=== PATIENT | female | born 1950 | race Caucasian/White ===

== ENCOUNTER → 2018-10-25 | Emergency (ER) | payer OTHER ==
[~2018-10-25] VITALS: Ht 160 cm; Wt 74.3 kg
[~2018-10-25] MED LIST: BEN50 PO; DIPHENHYDRAMINE 50 MG CAP PO ONE; FAMO-96 PO; METHYLPREDNISOLONE 125 MG INJ IM ONE; ONDA4TAB35 PO; PRED20TA PO
[2018-10-25 12:20] VITALS: BP 130/80; PULSE 88; RESP 18; Ht 160 cm; Wt 74.3 kg
--- NOTE | 2018-10-25 13:54 | ERD ---
ER Documentation Chief Complaint Chief Complaint facial swelling possible allergic reaction x 5 days HPI This is a 68-year-old female with history of hypertension and hypercholesteremia presents ED with complaints of mild facial swelling for the past 5 days. Patient has seasonal allergies and believes that she is having allergic reaction. Patient states that she has not started any new medications. Patient admits to using a new face lotion over the past week. Patient admits to runny nose, sneezing and itching. Denies fever, chills, x1, lip swelling, shortness breath, trouble breathing, chest pain, and all other symptoms. No known drug allergies. She states that she has had a similar symptom a year ago when she was given steroids. ROS All systems reviewed and are negative except as per history of present illness. Medications Home Meds Active Scripts Famotidine* (Pepcid*) 20 Mg Tablet, 20 MG PO BID for 4 Days, TAB Prov:MAHSA CONNORS PA-C 10/25/18 Prednisone* (Prednisone*) 20 Mg Tab, 40 MG PO DAILY for 4 Days, TAB Prov:MAHSA CONNORS PA-C 10/25/18 Diphenhydramine Hcl* (Benadryl*) 50 Mg Cap, 50 MG PO Q6 PRN for ALLERGIC REACTION, #30 CAP Prov:MAHSA CONNORS PA-C 10/25/18 Ondansetron Hcl* (Zofran* ODT) 4 mg -ODT Tab.disper, 4 MG PO Q6 PRN for NAUSEA AND/OR VOMITING, #10 TAB Prov:MARVIN LION 02/24/16 Allergies Allergies: Coded Allergies: No Known Allergy (Unverified , 10/25/18) PMhx/Soc Medical and Surgical Hx: pt denies Surgical Hx Hx Cardiac Disorders: Yes (high cholesterol ,htn) Hx Alcohol Use: No Hx Substance Use: No Hx Tobacco Use: No Smoking Status: Never smoker Physical Exam Vitals Vital Signs Date Temp Pulse Resp B/P (MAP) Pulse Ox O2 O2 Flow FiO2 Time Delivery Rate 10/25/18 98.1 88 18 130/80 95 12:20 (97) Physical Exam Physical Exam Vitals signs: Reviewed by me. General: Well developed, well nourished, in no acute distress. Patient is awake and alert. Head: Normocephalic, atraumatic. Eyes: Normal conjunctiva, Pupils PERRLA, EOM intact bilaterally x6, no pain with eye movement, no edema of eyelids, ENT: Pharynx is clear, Moist mucous membranes, external ears, nose and mouth normal, there is faint erythema and edema of bilateral cheeks, no uvula swelling, no tongue swelling, clear rhinorrhea present, no lip swelling Neck: Supple, no masses, lymphadenopathy or JVD Respiratory: Clear to auscultation bilaterally with no wheezing, rhonchi, rales, no distress no respiratory distress Cardiovascular: RRR, no murmurs, rubs, or gallops Neurologic: Alert and oriented, moving all extremities, normal speech, no focal weakness, no cerebellar signs. Normal mentation Skin: warm and dry, No rash Psych: Normal mood Results 24 hrs Current Medications Medications Dose Sig/Rodriguez Start Time Status Last (Trade) Ordered Route PRN Stop Time Admin Dose Reason Admin 50 mg ONCE ONCE 10/25/18 DC 10/25/18 Diphenhydrami PO 13:30 10/25/18 13:41 ne HCl 13:31 (Benadryl) 125 mg ONCE ONCE 10/25/18 DC 10/25/18 Methylprednis IM 13:30 10/25/18 13:41 olone Sodium 13:31 Succinate (Solu-Medrol) Procedures/MDM ER COURSE: The patient was given SOLUMedrol and Benadryl The medication was well tolerated and the patient reports improvement in symp toms. The patient was stable throughout ED course. I kept the patient and/or family informed of laboratory and diagnostic imaging results throughout the emergency room course. The patient was promptly evaluated and a treatment plan was devised based on H&P and other data. This plan was discussed with the patient who agreed and had no further questions or concerns prior to discharge. MEDICAL DECISION MAKING: This is a 68-year-old female with a history of hypertension and hypercholesteremia presents ED with complaints of facial swelling and possible allergic reaction over the past 5 days. Given history of starting a new face product this is likely a local allergic reaction to this facial product. Patient's lungs are clear, vitals are stable, and is having no signs of anaphylaxis. Patient has no wheezing, rhonchi, rales, tonsillar adenopathy, angioedema, airway compromise, hoarseness, tongue edema or uvulitis or signs of respiratory distress. History and physical examination other data not consistent with emergent process including life threatening rash or anaphylaxis. Vitals are stable and patient can be managed with close outpatient follow-up. Advised patient to follow up with primary care in the next 48 hours. Advised patient that if she is experiencing any shortness of breath, tongue swelling, trouble breathing, wheezing that he needs to report back to ER immediately. Patient was also referred to see an helpdesk manager for allergy testing. DISPOSITION PLAN: We discussed follow up with the patient's primary care doctor within 24 to 48 hours. Patient counseled regarding my diagnostic impression and care plan. Prior to discharge all questions answered. Pt agrees with treatment plan and understands strict return precautions. Precautionary instructions provided including instructions to return to the ER if not improving or for any worsening or changing symptoms or concerns. 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 Disclaimer: Inadvertent spelling and grammatical errors are likely due to EHR/dictation software use and do not reflect on the overall quality of patient care. Also, please note that the electronic time recorded on this note does not necessarily reflect the actual time of the patient encounter. Blood Pressure Assessment: Patient's blood pressure was elevated (>120/80) but appears stable without evidence of hypertension emergency or urgency. The patient was counseled about the risks of hypertension and urged to pursue outpatient monitoring and therapy within a week with their primary care physician. Departure Diagnosis: Primary Impression: Allergic reaction Encounter type: initial encounter Qualified Codes: T78.40XA - Allergy, unspecified, initial encounter Condition: Stable Patient Instructions: Allergic Reaction, Other (Local), Allergic Rhinitis Referrals: NISA BROOKS MD,FARIBA YEN,YAHAIRA CASEY,PAMELA CHAUDHARY,CHEPE TOBIAS,DARIAN HERRERA,DARIAN Victor [facility] YOU HAVE RECEIVED A MEDICAL SCREENING EXAM AND THE RESULTS INDICATE THAT YOU DO NOT HAVE A CONDITION THAT REQUIRES URGENT TREATMENT IN THE EMERGENCY DEPARTMENT. FURTHER EVALUATION AND TREATMENT OF YOUR CONDITION CAN WAIT UNTIL YOU ARE SEEN IN YOUR DOCTORS OFFICE WITHIN THE NEXT 1-2 DAYS. IT IS YOUR RESPONSIBILITY TO MAKE AN APPOINTMENT FOR FOLOW-UP CARE. IF YOU HAVE A PRIMARY DOCTOR --you should call your primary doctor and schedule an appointment IF YOU DO NOT HAVE A PRIMARY DOCTOR YOU CAN CALL OUR PHYSICIAN REFERRAL HOTLINE AT IF YOU CAN NOT AFFORD TO SEE A PHYSICIAN YOU CAN CHOSE FROM THE FOLLOWING [facility] [address] [facility] [address] [facility] [address] [facility] [address] [facility] [address] [facility]. [facility] [address] Additional Instructions: Patient advised to follow-up with dermatology for possible allergy testing Patient advised to return to the ED immediately for new or worsening symptoms. Patient advised to follow up with primary care provider in the next 24-48 hours. Patient verbalized understanding and agrees with treatment plan and course of action. If patient has no primary care they may follow up with one of the community clinics listed on the following page or one of the options listed below [facility] + [facility] [address] [place] [id number] or [facility] [address] [place] [address] or [facility] [address] [place] [address] MAHSA CONNORS PA-C Oct 25, 2018 13:54
== END | disposition home or self-care (01) ==
LOC: FTE 12:12
DX: R22.0 Localized swelling, mass and lump, head (principal)
CPT/HCPCS: 96372; J2930; Z7502; Z7610

== ENCOUNTER 2019-05-26 16:28 | Inpatient (IN) | payer OTHER ==
[~2019-05-26] VITALS: Ht 152.4 cm; Wt 69.0 kg
[~2019-05-26 16:28] MED LIST changes: +AMLO2.5T78 PO; +BACL10TA PO; +CEPH500C PO; -DIPHENHYDRAMINE 50 MG CAP PO ONE; +LOSA100T15 PO; -METHYLPREDNISOLONE 125 MG INJ IM ONE
[2019-05-26] MEDS ORDERED: PROCHLORPERAZINE 10 MG INJ IV STA (17:27)
[2019-05-26] MEDS ORDERED: KETOROLAC 30 MG INJ IV STA (17:27)
[2019-05-26] MEDS ORDERED: SOD CHLORIDE 0.9% 1,000 ML IV STA (17:27)
--- NOTE | 2019-05-26 20:41 | ERD ---
ER Documentation Chief Complaint Chief Complaint Pt c/o GOMES, n/v x 4 days HPI 68-year-old female presenting with complaints of frontal headache, high diastolic blood pressure, generalized weakness with nausea and vomiting. She also has associated muscle cramps for the past 4 days. All her symptoms have been going on for 4 days. She denies any vision disturbance, focal weakness or numbness. No abdominal pain, chest pain, shortness of breath, dysuria or hematuria. No melena or hematochezia. She states that her blood pressure has been difficult to control. She was seen a few days ago at another hospital where she had a work-up done showing possible infection of the urine but otherwise labs were normal per family. Of note, she did recently increase her losartan from 50 mg to 100 mg daily. ROS All systems reviewed and are negative except as per history of present illness. Medications Home Meds Active Scripts Ondansetron Hcl* (Zofran* ODT) 4 mg -ODT Tab.disper, 4 MG PO Q6 PRN for NAUSEA AND/OR VOMITING, #10 TAB Prov:MARVIN LION 02/24/16 Reported Medications Amlodipine Besylate* (Amlodipine Besylate*) 2.5 Mg Tablet, 2.5 MG PO QPM, #30 TAB 05/26/19 Baclofen* (Baclofen*) 10 Mg Tablet, 10 MG PO DAILY, TAB 05/26/19 Cephalexin* (Cephalexin*) 500 Mg Capsule, 500 MG PO DAILY, #28 CAP 05/26/19 Losartan Potassium* (Losartan Potassium*) 100 Mg Tablet, 100 MG PO DAILY, TAB 05/26/19 Discontinued Scripts Famotidine* (Pepcid*) 20 Mg Tablet, 20 MG PO BID for 4 Days, TAB Prov:MAHSA CONNORS PA-C 10/25/18 Prednisone* (Prednisone*) 20 Mg Tab, 40 MG PO DAILY for 4 Days, TAB Prov:MAHSA CONNORS PA-C 10/25/18 Diphenhydramine Hcl* (Benadryl*) 50 Mg Cap, 50 MG PO Q6 PRN for ALLERGIC REACTION, #30 CAP Prov:MAHSA CONNORS PA-C 10/25/18 Allergies Allergies: Coded Allergies: No Known Allergy (Unverified , 10/25/18) PMhx/Soc History of Surgery: No Hx Cardiac Disorders: Yes (high cholesterol ,htn) Hx Alcohol Use: No Hx Substance Use: No Hx Tobacco Use: No Smoking Status: Never smoker FmHx Family History: No diabetes Physical Exam Vitals Vital Signs Date Temp Pulse Resp B/P (MAP) Pulse Ox O2 O2 Flow FiO2 Time Delivery Rate 05/26/19 98.7 91 18 138/92 96 Room Air 21:27 (107) 05/26/19 98.7 89 16 139/84 94 Room Air 20:49 (102) 05/26/19 98.7 82 20 131/84 99 Room Air 20:05 (100) 05/26/19 98.7 73 20 123/79 99 Room Air 18:47 (94) 05/26/19 98.7 81 20 134/79 99 Room Air 18:04 (97) 05/26/19 98.7 88 20 134/101 99 Room Air 17:06 (112) 05/26/19 98.7 100 20 130/87 99 16:32 (101) Physical Exam Const: No acute distress Head: Atraumatic Eyes: Normal Conjunctiva, PERRLA, EOMI, no nystagmus ENT: Dry mucous membranes. Normal External Ears, Nose and Mouth. Neck: Full range of motion. No meningismus. Resp: Clear to auscultation bilaterally Cardio: Regular rate and rhythm, no murmurs, 2+ distal pulses in all 4 extremities Abd: Soft, non tender, non distended. Normal bowel sounds Skin: No petechiae or rashes Back: No midline or flank tenderness Ext: No cyanosis, or edema Neur: Awake and alert, oriented x3, cranial nerves intact, strength and sensations intact in all 4 extremities. Normal speech, normal balance. Psych: Normal Mood and Affect Result Diagram: 05/26/19 1740 05/26/19 174 Results 24 hrs Laboratory Tests Test 05/26/19 16:45 05/26/19 17:27 05/26/19 17:40 05/26/19 19:15 Osmolality 236 mOsm/kg Hemoglobin A1c 5.9 % White Blood Count 11.7 10^3/ul Red Blood Count 4.69 10^6/ul Hemoglobin 13.3 g/dl Hematocrit 37.7 % Mean Corpuscular 80.4 fl Volume Mean Corpuscular 28.4 pg Hemoglobin Mean Corpuscular 35.3 g/dl Hemoglobin Concent Red Cell 11.9 % Distribution Width Platelet Count 379 10^3/UL Mean Platelet 8.8 fl Volume Immature 1.400 % Granulocytes % Neutrophils % 64.9 % Lymphocytes % 25.6 % Monocytes % 7.6 % Eosinophils % 0.2 % Basophils % 0.3 % Nucleated Red Blood 0.0 /100WBC Cells % Immature 0.160 10^3/ul Granulocytes # Neutrophils # 7.6 10^3/ul Lymphocytes # 3.0 10^3/ul Monocytes # 0.9 10^3/ul Eosinophils # 0.0 10^3/ul Basophils # 0.0 10^3/ul Nucleated Red Blood 0.0 10^3/ul Cells # Sodium Level 115 mmol/L Potassium Level 3.1 mmol/L Chloride Level 77 mmol/L Carbon Dioxide 24 mmol/L Level Anion Gap 14 Blood Urea Nitrogen 16 mg/dl Creatinine 0.69 mg/dl Est Glomerular > 60 mL/min Filtrat Rate mL/min Glucose Level 145 mg/dl Calcium Level 9.7 mg/dl Troponin I < 0.012 ng/ml Urine Color COLORLESS Urine Clarity CLEAR Urine pH 7.0 Urine Specific 1.003 Randall Urine Ketones NEGATIVE mg/dL Urine Nitrite NEGATIVE mg/dL Urine Bilirubin NEGATIVE mg/dL Urine Urobilinogen NEGATIVE mg/dL Urine Leukocyte NEGATIVE Darrin/ul Esterase Urine Microscopic 2 /HPF RBC Urine Microscopic 0 /HPF WBC Urine Hemoglobin 1+ mg/dL Urine Osmolality 154 mOsm/kg Urine Random Sodium 17 mmol/L Urine Random 12.3 mmol/L Potassium Urine Glucose NEGATIVE mg/dL Urine Total Protein NEGATIVE mg/dl Current Medications Medications Dose Sig/Rodriguez Start Time Status Last (Trade) Ordered Route PRN Stop Time Admin Dose Reason Admin 10 mg ONCE STAT 05/26/19 DC 05/26/19 Prochlorperaz IV 17:27 05/26/19 17:41 ine 17:31 (Compazine Inj) Ketorolac 15 mg ONCE STAT 05/26/19 DC 05/26/19 Tromethamine IV 17:27 05/26/19 17:41 (Toradol) 17:31 Sodium 1,000 ml @ Q1H STAT 05/26/19 DC 05/26/19 Chloride 1,000 mls/hr IV 17:27 05/26/19 17:40 18:26 Sodium 1,000 ml @ Q10H IV 05/26/19 05/26/19 Chloride 100 mls/hr 20:48 21:05 Ondansetron 4 mg Q6H PRN 05/26/19 HCl (Zofran IV NAUSEA 21:00 Inj) AND/OR VOMITING Albuterol/ 3 ml Q2H RESP 05/26/19 Ipratropium THERAPY PRN 21:00 (Duoneb) NEB SHORTNESS OF BREATH 650 mg Q6H PRN 05/26/19 Acetaminophen PO PAIN 21:00 (Tylenol LEVEL 1-3 OR Liquid) FEVER Procedures/MDM EMERGENT LABS AND DIAGNOSTIC STUDIES: Lab Results above were reviewed and interpreted by me. CBC: no anemia or evidence of infection BMP: Severe hyponatremia, hypochloremia, and hypokalemia. no e/o clinically significant acidosis, alkalosis, renal failure, diabetic ketoacidosis Troponin within normal limits, not indicative of cardiac ischemia UA: 1+ hemoglobin with 2 RBCs, possibly rhabdomyolysis. No evidence of infection 12-lead EKG was interpreted by Tez Gonzalez MD: Normal Sinus Rhythm with ventricular rate of [] beats per minute Normal axis Normal intervals No acute ST or T wave changes suggestive of acute ischemia or STEMI. Radiology Results as interpreted by Radiology below were reviewed by Lexie Gonzalez MD: Chest x-ray shows no acute abnormalities CT head no acute abnormalities Initial Nursing notes reviewed. Previous Medical Records requested via the Electronic Health Record. EMERGENCY DEPARTMENT COURSE / MEDICAL DECISION MAKING: Patient is presenting with multiple complaints including generalized weakness, frontal headache, nausea and vomiting as well as muscle cramps. Her vitals were notable for mild hypoxia on room air of unclear etiology. However she has no symptoms of infection, PE, CHF, pneumothorax, or ACS. Chest x-ray was un remarkable. Her diastolic blood pressure was elevated with systolic was somewhat normal. IV fluids were initiated. Work-up showed evidence of severe hyponatremia with mild hypokalemia of unclear etiology. CT was ordered of the head and did not show any significant acute abnormalities. Patient is not stable for discharge and will require admission. At this time she does not require hypertonic saline as she is neurologically intact without any evidence of seizure-like activity. Critical Care Time: 45 minutes Treatments/Evaluations: Close monitoring and treatment of unstable vital signs, cardiorespiratory, and neurologic status, while maintaining tight balance of fluid, respiratory, and cardiac interventions. This time includes discussing the case with the patient and the patients family. This time does not include all procedures stated elsewhere in this record. This time also includes reviewing old records, labs and radiological studies. This time includes examining and re-examining the patient. Additionally, this time also includes arranging care with admitting and consulting physicians. Accepting Care Team: Current data and ongoing care discussed. Time: Time of admission Primary Provider: Dr. Barron Departure Diagnosis: Primary Impression: Hyponatremia syndrome Additional Impressions: Frontal headache Generalized weakness Nausea and vomiting Vomiting type: unspecified Vomiting Intractability: non-intractable Qualified Codes: R11.2 - Nausea with vomiting, unspecified Condition: Critical EKJV MCCLELLAN MD May 26, 2019 20:41
[2019-05-26] MEDS ORDERED: SOD CHLORIDE 0.9% 1,000 ML IV SCH (20:48)
[2019-05-26] MEDS ORDERED: ONDANSETRON 4 MG INJ IV PRN (21:00)
[2019-05-26] MEDS ORDERED: ACETAMINOPHEN 650MG/20.3ML CUP PO PRN (21:00)
[2019-05-26] MEDS ORDERED: ALBUTEROL/IPRATROPIUM (NEB) 3 ML AMP NEB PRN (21:00)
--- NOTE | 2019-05-27 00:08 | HP ---
Date/Time of Note Date/Time of Note DATE: 05/27/19 TIME: 00:08 Assessment/Plan VTE Prophylaxis Pharmacological prophylaxis: heparin Lines/Catheters IV Catheter Type (from Nrsg): Saline Lock Assessment/Plan Assessment/Plan 1. Hypovolemic hyponatremia, secondary to vomiting and decreased p.o. intake -NS IVF -Check urine sodium and serum/urine osmolality -Consider nephrology consult 2. Headache/dizziness: Likely secondary to above -Head CT negative for acute findings 3. Hypertension: BP within acceptable range 4. Dyslipidemia: Continue statin Result Diagram: 05/26/19 1740 05/26/19 1740 Results 24hrs Laboratory Tests Test 05/26/19 16:45 05/26/19 17:27 05/26/19 17:40 05/26/19 19:15 Osmolality 236 L Hemoglobin A1c 5.9 White Blood Count 11.7 #H Red Blood Count 4.69 Hemoglobin 13.3 Hematocrit 37.7 Mean Corpuscular Volume 80.4 L Mean Corpuscular 28.4 L Hemoglobin Mean Corpuscular 35.3 Hemoglobin Concent Red Cell Distribution 11.9 Width Platelet Count 379 Mean Platelet Volume 8.8 # Immature Granulocytes % 1.400 H Neutrophils % 64.9 Lymphocytes % 25.6 Monocytes % 7.6 Eosinophils % 0.2 Basophils % 0.3 Nucleated Red Blood 0.0 Cells % Immature Granulocytes # 0.160 H Neutrophils # 7.6 H Lymphocytes # 3.0 H Monocytes # 0.9 Eosinophils # 0.0 Basophils # 0.0 Nucleated Red Blood 0.0 Cells # Sodium Level 115 *L Potassium Level 3.1 L Chloride Level 77 L Carbon Dioxide Level 24 Anion Gap 14 H Blood Urea Nitrogen 16 Creatinine 0.69 Est Glomerular Filtrat > 60 Rate mL/min Glucose Level 145 Calcium Level 9.7 Troponin I < 0.012 Urine Color COLORLESS Urine Clarity CLEAR Urine pH 7.0 Urine Specific Addison 1.003 Urine Ketones NEGATIVE Urine Nitrite NEGATIVE Urine Bilirubin NEGATIVE Urine Urobilinogen NEGATIVE Urine Leukocyte Esterase NEGATIVE Urine Microscopic RBC 2 Urine Microscopic WBC 0 Urine Hemoglobin 1+ H Urine Osmolality 154 L Urine Random Sodium 17 L Urine Random Potassium 12.3 L Urine Glucose NEGATIVE Urine Total Protein NEGATIVE HPI/ROS Admit Date/Time Admit Date/Time Hx of Present Illness Patient is a 68-year-old female with a history of hypertension, dyslipidemia who was brought to the ER for generalized weakness, headache, vomiting and a decreased p.o. intake. Patient is accompanied by her daughter who provided most of the story. Patient started having nausea and vomiting 4 days ago and then she started having generalized weakness and a frontal headache. Daughter said blood pressure was 150s over 100, which she said is high for her mother. A week prior she was seen at [facility] for her lower back pain. According to the daughter, CT was negative. Patient without bladder/bowel incontinence, pain does not radiate to her leg and no reported trauma. Patient has been taking baclofen. Her daughter is a chiropractor and she has been massaging her mother. Patient also has been having cramps in her leg. When patient presented to ER, vitals were stable. She was found to have sodium of 115. Patient not on HCTZ or SSRI. Head CT without acute findings. PMH/Family/Social Past Medical History Medical History: other (See HPI) Medications Current Medications Sodium Chloride 1,000 ml @ 100 mls/hr Q10H IV Last administered on 05/26/19at 21:05; Admin Dose 100 MLS/HR; Start 05/26/19 at 20:48 Ondansetron HCl (Zofran Inj) 4 mg Q6H PRN IV NAUSEA AND/OR VOMITING; Start 05/26/19 at 21:00 Albuterol/ Ipratropium (Duoneb) 3 ml Q2H RESP THERAPY PRN NEB SHORTNESS OF BREATH; Start 05/26/19 at 21:00 Acetaminophen (Tylenol Liquid) 650 mg Q6H PRN PO PAIN LEVEL 1-3 OR FEVER; Start 05/26/19 at 21:00 Coded Allergies: No Known Allergy (Unverified , 10/25/18) Past Surgical History Past Surgical Hx: other (See HPI) Family History Significant Family History: no pertinent family hx Social History Alcohol Use: none Smoking Status: Never smoker Drug Use: none Exam/Review of Systems Vital Signs Vitals Vital Signs Date Temp Pulse Resp B/P (MAP) Pulse Ox O2 O2 Flow FiO2 Time Delivery Rate 05/26/19 98.7 84 18 139/90 100 Room Air 23:19 (106) Intake and Output 05/26/19 05/26/19 05/27/19 1515:00 23:00 07:00 IntakeIntake Total 1000 ml BalanceBalance 1000 ml Exam Constitutional: other (Appears a week. But arousable and answering questions the help of pharmacist in charge) Head: normocephalic, atraumatic Eyes: EOMI, PERRL Respiratory: clear to auscultation, normal air movement Cardiovascular: regular rate and rhythm, nl pulses Gastrointestinal: soft, non-tender Extremities: normal pulses MARVIN CURTIS MD May 27, 2019 00:08
--- NOTE | 2019-05-27 13:31 | PN ---
Date/Time of Note Date/Time of Note DATE: 05/27/19 TIME: 13:27 Assessment/Plan VTE Prophylaxis SCD applied (from Nsg): Yes Pharmacological prophylaxis: NA/contraindicated Pharm contraindication: low risk/ambulating Lines/Catheters IV Catheter Type (from Nrsg): Saline Lock Assessment/Plan Assessment/Plan 68 yo [place] woman no major PMH presents with nausea, vomiting, and severe hyponatremia 1. Hypovolemic hyponatremia, secondary to vomiting and decreased p.o. intake -NS IVF -Now resolving after aggressive IV fluids. -Continue regular BMPs. 2. Headache/dizziness: Likely secondary to above -Head CT negative for acute findings -Now resolved. 3. Hypertension: BP within acceptable range 4. Dyslipidemia: Continue statin Dispo: Anticipate discharge home in 24-48 hrs. Result Diagram: 05/27/19 0545 05[birth year]1945 Subjective 24 Hr Interval Summary Free Text/Dictation No acute overnight events. Spoke to patient via daughter Cayla at bedside. The patient is feeling much better. She is up and walking short distances. Tolerating diet. No more nausea or vomiting. Still feels slightly fatigued. Exam/Review of Systems Exam Vitals Vital Signs Date Temp Pulse Resp B/P (MAP) Pulse Ox O2 O2 Flow FiO2 Time Delivery Rate 05/27/19 79 19 114/84 100 Room Air 08:29 (94) 05/27/19 98.7 03:06 Intake and Output 05/26/19 05/26/19 05/27/19 1515:00 23:00 07:00 IntakeIntake Total 1000 ml BalanceBalance 1000 ml Exam Gen: Well appearing elderly woman supine in bed Eyes: PERRL, no icterus HEENT: Moist mucous membranes, clear oropharynx Neck: Supple, no lymphadenopathy Card: Regular rate and rhythm, no murmurs Pulm: Clear to auscultation bilaterally Abd: Soft, normoactive bowel sounds, nondistended. Ext: No cyanosis/clubbing/edema. Results Results 24hrs Laboratory Tests Test 05/26/19 16:45 05/26/19 17:27 05/26/19 17:40 05/26/19 19:15 Osmolality 236 L Hemoglobin A1c 5.9 White Blood Count 11.7 #H Red Blood Count 4.69 Hemoglobin 13.3 Hematocrit 37.7 Mean Corpuscular Volume 80.4 L Mean Corpuscular 28.4 L Hemoglobin Mean Corpuscular 35.3 Hemoglobin Concent Red Cell Distribution 11.9 Width Platelet Count 379 Mean Platelet Volume 8.8 # Immature Granulocytes % 1.400 H Neutrophils % 64.9 Lymphocytes % 25.6 Monocytes % 7.6 Eosinophils % 0.2 Basophils % 0.3 Nucleated Red Blood 0.0 Cells % Immature Granulocytes # 0.160 H Neutrophils # 7.6 H Lymphocytes # 3.0 H Monocytes # 0.9 Eosinophils # 0.0 Basophils # 0.0 Nucleated Red Blood 0.0 Cells # Sodium Level 115 *L Potassium Level 3.1 L Chloride Level 77 L Carbon Dioxide Level 24 Anion Gap 14 H Blood Urea Nitrogen 16 Creatinine 0.69 Est Glomerular Filtrat > 60 Rate mL/min Glucose Level 145 Calcium Level 9.7 Troponin I < 0.012 Urine Color COLORLESS Urine Clarity CLEAR Urine pH 7.0 Urine Specific [place] 1.003 Urine Ketones NEGATIVE Urine Nitrite NEGATIVE Urine Bilirubin NEGATIVE Urine Urobilinogen NEGATIVE Urine Leukocyte Esterase NEGATIVE Urine Microscopic RBC 2 Urine Microscopic WBC 0 Urine Hemoglobin 1+ H Urine Osmolality 154 L Urine Random Sodium 17 L Urine Random Potassium 12.3 L Urine Glucose NEGATIVE Urine Total Protein NEGATIVE Test 05/27/19 00:25 05/27/19 05:45 Sodium Level 123 L 124 L Potassium Level 3.3 L 3.7 Chloride Level 87 #L 87 L Carbon Dioxide Level 25 27 Anion Gap 11 10 Blood Urea Nitrogen 14 14 Creatinine 0.62 0.74 Est Glomerular Filtrat > 60 > 60 Rate mL/min Glucose Level 101 # 98 Calcium Level 8.3 L 9.1 White Blood Count 9.2 # Red Blood Count 4.24 Hemoglobin 12.1 Hematocrit 34.8 L Mean Corpuscular Volume 82.1 Mean Corpuscular 28.5 L Hemoglobin Mean Corpuscular 34.8 Hemoglobin Concent Red Cell Distribution 12.0 Width Platelet Count 291 # Mean Platelet Volume 8.4 Immature Granulocytes % 1.200 H Neutrophils % 51.8 Lymphocytes % 34.1 Monocytes % 11.7 H Eosinophils % 0.9 Basophils % 0.3 Nucleated Red Blood 0.0 Cells % Immature Granulocytes # 0.110 H Neutrophils # 4.8 Lymphocytes # 3.2 H Monocytes # 1.1 H Eosinophils # 0.1 Basophils # 0.0 Nucleated Red Blood 0.0 Cells # Hemoglobin A1c 5.8 Uric Acid 2.9 L Total Bilirubin 0.7 Direct Bilirubin 0.00 Indirect Bilirubin 0.7 Aspartate Amino 27 Transf (AST/SGOT) Alanine 27 Aminotransferase (ALT/SG PT) Alkaline Phosphatase 55 Total Protein 7.7 Albumin 4.0 Globulin 3.70 H Albumin/Globulin Ratio 1.08 Triglycerides Level 153 H Cholesterol Level 209 H LDL Cholesterol, 125 Calculated HDL Cholesterol 53 Cholesterol/HDL Ratio 3.9 Thyroid Stimulating 1.470 Hormone (TSH) Medications Medication Current Medications Ondansetron HCl (Zofran Inj) 4 mg Q6H PRN IV NAUSEA AND/OR VOMITING; Start 05/26/19 at 21:00 Albuterol/ Ipratropium (Duoneb) 3 ml Q2H RESP THERAPY PRN NEB SHORTNESS OF BREATH; Start 05/26/19 at 21:00 Acetaminophen (Tylenol Liquid) 650 mg Q6H PRN PO PAIN LEVEL 1-3 OR FEVER; Start 05/26/19 at 21:00 PRIMITIVO SMALLWOOD MD May 27, 2019 13:31
[2019-05-27 17:45] VITALS: BP 126/73; PULSE 88; RESP 18
[2019-05-27 20:33] VITALS: BP 131/80; PULSE 93; RESP 18
[2019-05-27 21:00] VITALS: Ht 152.4 cm; Wt 69.0 kg
[2019-05-27] MEDS ORDERED: ACETAMINOPHEN 325 MG TAB PO PRN (22:30)
[2019-05-27] MEDS ORDERED: POTASSIUM CHLORIDE 30 MEQ in SOD CHLORIDE 0.9% 1,000 ML IV SCH (22:30)
[2019-05-27] MEDS ORDERED: NACL 0.9% 3 ML SYG IV SCH (22:30)
[2019-05-27] MEDS ORDERED: DOCUSATE SODIUM 100 MG CAP PO PRN (22:30)
[2019-05-27] MEDS ORDERED: ONDANSETRON 4 MG INJ IV PRN (22:30)
[2019-05-27] MEDS ORDERED: BISACODYL (EC) 5 MG TAB PO PRN (22:30)
[2019-05-27] MEDS ORDERED: POTASSIUM CHLORIDE (SR) 10 MEQ TAB PO ONE (22:30)
[2019-05-28 00:19] VITALS: BP 137/80; PULSE 79; RESP 18
[2019-05-28] MEDS ORDERED: traMADol 50 MG TAB PO PRN (01:00)
[2019-05-28 04:20] VITALS: BP 132/78; PULSE 83; RESP 17
[2019-05-28 08:07] VITALS: BP 134/66; PULSE 99; RESP 17
--- NOTE | 2019-05-28 10:58 | PDOCDIS ---
Discharge Instructions DIAGNOSIS Discharge Diagnosis Hyponatremia due to acute gastroenteritis CONDITION [id number] Patient Condition: [id number] Good HOME CARE INSTRUCTIONS: [id number] Diet Instructions: [id number] Regular ACTIVITY: [id number] Activity Restrictions: [id number] No Restrictions FOLLOW UP/APPOINTMENTS Follow-up Plan 1. Take all medications as prescribed, including your course of antibiotics prescribed at the other hospital. 2. See your primary care doctor in 1-2 weeks. 3. Return to the emergency room if you develop vomiting and cannot keep down food or liquids. 4. Continue your usual diet at home and continue normal activity. PRIMITIVO SMALLWOOD MD May 28, 2019 10:58
[2019-05-28 11:30] VITALS: BP 125/65; PULSE 88; RESP 17
--- NOTE | 2019-05-28 15:21 | DS ---
Date/Time of Note Date/Time of Note DATE: 05/28/19 TIME: 15:14 Discharge Summary Admission/Discharge Info Admit Date/Time May 27, 2019 at 01:38 Discharge Date/Time May 28, 2019 at 14:00 Discharge Diagnosis Hyponatremia due to acute gastroenteritis Patient Condition: Good Hx of Present Illness Patient is a 68-year-old female with a history of hypertension, dyslipidemia who was brought to the ER for generalized weakness, headache, vomiting and a decreased p.o. intake. Patient is accompanied by her daughter who provided most of the story. Patient started having nausea and vomiting 4 days ago and then she started having generalized weakness and a frontal headache. Daughter said blood pressure was 150s over 100, which she said is high for her mother. A week prior she was seen at [facility] for her lower back pain. According to the daughter, CT was negative. Patient without bladder/bowel incontinence, pain does not radiate to her leg and no reported trauma. Patient has been taking baclofen. Her daughter is a chiropractor and she has been massaging her mother. Patient also has been having cramps in her leg. When patient presented to ER, vitals were stable. She was found to have sodium of 115. Patient not on HCTZ or SSRI. Head CT without acute findings. Hospital Course The patient was given IV fluids. Sodium quickly recovered to 123 from 115. Over the next 24 hours it gradually increased to 129. Urinalysis was clean, and the patient had no lower urinary symptoms or signs of sepsis so no antibiotics were required. Her lower back pain resolved. She was tolerating diet. She will be discharged home with her daughter. Home Meds Active Scripts Ondansetron Hcl* (Zofran* ODT) 4 mg -ODT Tab.disper, 4 MG PO Q6 PRN for NAUSEA AND/OR VOMITING, #10 TAB Prov:MARVIN LIONStephane 02/24/16 Reported Medications Amlodipine Besylate* (Amlodipine Besylate*) 2.5 Mg Tablet, 2.5 MG PO QPM, #30 TAB 05/26/19 Baclofen* (Baclofen*) 10 Mg Tablet, 10 MG PO DAILY, TAB 05/26/19 Cephalexin* (Cephalexin*) 500 Mg Capsule, 500 MG PO DAILY, #28 CAP 05/26/19 Losartan Potassium* (Losartan Potassium*) 100 Mg Tablet, 100 MG PO DAILY, TAB 05/26/19 Discontinued Scripts Famotidine* (Pepcid*) 20 Mg Tablet, 20 MG PO BID for 4 Days, TAB Prov:MAHSA CONNORS PA-C 10/25/18 Prednisone* (Prednisone*) 20 Mg Tab, 40 MG PO DAILY for 4 Days, TAB Prov:MAHSA CONNORS PA-C 10/25/18 Diphenhydramine Hcl* (Benadryl*) 50 Mg Cap, 50 MG PO Q6 PRN for ALLERGIC REACTION, #30 CAP Prov:MAHSA CONNORS PA-C 10/25/18 Follow-up Plan 1. Take all medications as prescribed, including your course of antibiotics prescribed at the other hospital. 2. See your primary care doctor in 1-2 weeks. 3. Return to the emergency room if you develop vomiting and cannot keep down food or liquids. 4. Continue your usual diet at home and continue normal activity. Primary Care Provider Care Physician No Primary Time spent on discharge: > 30 minutes Pending Labs Laboratory Tests Test 05/27/19 16:53 05/28/19 02:16 05/28/19 06:23 Sodium Level 125 128 129 mmol/L (135-144) mmol/L (135-144) mmol/L (135-144) Potassium Level 3.2 3.9 4.5 mmol/L (3.5-5.1) mmol/L (3.5-5.1) mmol/L (3.5-5.1) Chloride Level 91 mmol/L (97-110) 93 mmol/L (97-110) 96 mmol/L (97-110) Carbon Dioxide 23 mmol/L (21-31) 24 mmol/L (21-31) 24 mmol/L (21-31) Level Anion Gap 11 (5-13) 11 (5-13) 9 (5-13) Blood Urea 13 mg/dl (7-20) 11 mg/dl (7-20) 11 mg/dl (7-20) Nitrogen Creatinine 0.59 0.65 0.67 mg/dl (0.44-1.00) mg/dl (0.44-1.00) mg/dl (0.44-1.00) Est Glomerular > 60 mL/min (>60) > 60 mL/min (>60) > 60 mL/min (>60) Filtrat Rate mL/min Glucose Level 117 mg/dl (70-220) 102 mg/dl (70-220) 93 mg/dl (70-220) Calcium Level 8.8 9.2 9.4 mg/dl (8.4-10.2) mg/dl (8.4-10.2) mg/dl (8.4-10.2) White Blood Count 8.3 10^3/ul (4.8-10.8) Red Blood Count 4.26 10^6/ul (4.20-5.40 ) Hemoglobin 12.2 g/dl (12.0-16.0) Hematocrit 35.8 % (37.0-47.0) Mean Corpuscular 84.0 Volume fl (82.0-101.0) Mean Corpuscular 28.6 Hemoglobin pg (29.0-33.0) Mean Corpuscular 34.1 Hemoglobin Concent g/dl (32.0-37.0) Red Cell 12.3 % (11.5-14.5) Distribution Width Platelet Count 313 10^3/UL (140-415) Mean Platelet 8.5 fl (7.4-10.4) Volume Immature 1.800 Granulocytes % % (0.001-0.429) Neutrophils % 47.9 % (39.0-77.0) Lymphocytes % 39.1 % (15.0-51.0) Monocytes % 9.4 % (0.0-11.0) Eosinophils % 1.3 % (0.0-7.0) Basophils % 0.5 % (0.0-2.0) Nucleated Red Blood 0.0 Cells % /100WBC (0.0-0.0) Immature 0.150 Granulocytes # 10^3/ul (0.0-0.031 ) Neutrophils # 4.0 10^3/ul (1.6-7.5) Lymphocytes # 3.2 10^3/ul (0.8-2.9) Monocytes # 0.8 10^3/ul (0.3-0.9) Eosinophils # 0.1 10^3/ul (0.0-0.5) Basophils # 0.0 10^3/ul (0.0-0.1) Nucleated Red Blood 0.0 Cells # 10^3/ul (0.0-0.0) PRIMITIVO SMALLWOOD MD May 28, 2019 15:20
[2019-05-28] MEDS ORDERED: AMLODIPINE 2.5 MG TAB PO SCH (21:00)
== END 2019-05-28 14:00 | disposition home or self-care (01) | DRG 392 ==
LOC: E/R 16:28 → TEL 05-27 01:38 → EDBEDREQSVC 05-27 01:41 → SUATTDRO 05-27 09:37 → E/R 05-27 17:00
PROVIDERS: ADMIT Internal Medicine; ATTEND Internal Medicine
DX: K52.9 Noninfective gastroenteritis and colitis, unspecified (principal); E87.1 Hypo-osmolality and hyponatremia; I10 Essential (primary) hypertension; R25.2 Cramp and spasm; R11.2 Nausea with vomiting, unspecified; R42 Dizziness and giddiness; R51 Headache; E78.5 Hyperlipidemia, unspecified
CPT/HCPCS: 36415; 70450; 71045; 80048; 80053; 80061; 81001; 82436; 83036; 83930; 83935; 84133; 84300; 84443; 84484; 84560; 85025; 93005; 96361; 96374; 96375; J0780; J1885; J3480; J7030